=== PATIENT | male | born 1955 | race African-American/Black ===

== ENCOUNTER 2022-04-15 06:05 | Inpatient (IN) ==
[~2022-04-15 06:05] MED LIST: CeFAZolin Syr 2,000MG/20 ML 2,000 MG/20 ML SYRINGE IVPB ONE
[2022-04-15] MEDS ORDERED: DOBUTamine 1,000 MG/250 ML BAG ONE (06:07)
[2022-04-15] MEDS ORDERED: NiCARdipine 2.5 MG/10 ML Syringe IVPB ONE (06:08)
[2022-04-15] MEDS ORDERED: *HR* Midazolam HCl 5 MG/5 ML VIAL IVP ONE (06:12)
[2022-04-15] MEDS ORDERED: *HR* Propofol 200 MG/20 ML VIAL IVP ONE (06:13)
[2022-04-15] MEDS ORDERED: *HR* Rocuronium Bromide 50 MG/5 ML VIAL ONE ×3 (06:13→10:35)
[2022-04-15] MEDS ORDERED: Tranexamic Acid 1,000 MG/10 ML VIAL ONE (06:13)
[2022-04-15] MEDS ORDERED: Famotidine 20 MG/2 ML VIAL ONE (06:13)
[2022-04-15] MEDS ORDERED: *HR* FentaNYL (PF) 1,000 MCG/20 ML VIAL ONE (06:13)
[2022-04-15] MEDS ORDERED: *HR* Magnesium Sulfate 1 GM/2 ML VIAL ONE (06:13)
[2022-04-15] MEDS ORDERED: CeFAZolin Syr 2,000MG/20 ML 2,000 MG/20 ML SYRINGE IVPB ONE (06:18)
[2022-04-15] MEDS ORDERED: Ringers Solution, Lactated 1,000 ML IVC SCH (06:30)
[2022-04-15] MEDS ORDERED: Heparin 1,000 UNITS/500 mL 500 ML ONE (06:34)
[2022-04-15] MEDS ORDERED: Iopamidol - 300 50 ML VIAL ONE (06:35)
[2022-04-15] MEDS: Chlorhexidine Rinse 15 ML MOUTHWASH MM SCH ×7 (06:46→19:30)
[2022-04-15] MEDS ORDERED: Norepinephrine 4 MG in 0.9 % Sodium Chloride 250 ML IVC PRN (07:00)
[2022-04-15] MEDS ORDERED: Heparin 15,000 UNIT in 0.9 % Sodium Chloride 500 ML IR ONE (07:00)
[2022-04-15] MEDS ORDERED: Vancomycin 1,500 MG/265 ML IV.SOLN IVPB ONE (07:00)
[2022-04-15] MEDS ORDERED: del Nido Cardioplegia Solution PF ONE ×2 (07:00)
[2022-04-15] MEDS ORDERED: Buckersberg's Blood Cardioplegia PF ONE (07:00)
[2022-04-15] MEDS ORDERED: Lidocaine 2% Syringe 100 MG/5 ML ONE (07:01)
[2022-04-15 07:23] LABS: ABG Base Excess -3 mEq/L (-2 to 3); ABG Chloride 109 mEq/L (98-107); ABG Glucose 118 mg/dL (60-95); ABG HCO3 24 mEq/L (21-27); ABG Oxygen Saturation 100 % (95-98); ABG PCO2 48 mmHg (35-45); ABG PH 7.31 pH Units (7.32-7.45); ABG PO2 264 mmHg (85-104); ABG TCO2 26 mEq/L (20-26)
[2022-04-15] MEDS ORDERED: *HR* FentaNYL (PF) 250 MCG/5 ML VIAL ONE (09:49)
[2022-04-15 09:51] LABS: ABG Base Excess -3 mEq/L (-2 to 3); ABG Chloride 110 mEq/L (98-107); ABG Glucose 106 mg/dL (60-95); ABG HCO3 22 mEq/L (21-27); ABG Ionized Calcium 1.11 mmol/L (1.15-1.35); ABG Oxygen Saturation 100 % (95-98); ABG PCO2 36 mmHg (35-45); ABG PH 7.39 pH Units (7.32-7.45); ABG PO2 217 mmHg (85-104); ABG TCO2 23 mEq/L (20-26)
[2022-04-15 09:56] LABS: ABG Base Excess -3 mEq/L (-2 to 3); ABG Chloride 106 mEq/L (98-107); ABG Glucose 141 mg/dL (60-95); ABG HCO3 22 mEq/L (21-27); ABG Ionized Calcium 1.04 mmol/L (1.15-1.35); ABG Oxygen Saturation 100 % (95-98); ABG PCO2 39 mmHg (35-45); ABG PH 7.37 pH Units (7.32-7.45); ABG PO2 236 mmHg (85-104); ABG TCO2 24 mEq/L (20-26)
[2022-04-15] MEDS ORDERED: Calcium Gluconate 1,000 MG/10 ML VIAL ONE ×2 (10:01→11:33)
[2022-04-15] MEDS ORDERED: Sodium Bicarbonate 50 MEQ/50 ML VIAL IVC ONE (10:07)
[2022-04-15] MEDS ORDERED: Lidocaine 2% Syringe 100 MG/5 ML IVP ONE (10:07)
[2022-04-15] MEDS ORDERED: *HR* Magnesium Sulfate 2 GM/50 ML PIGGYBACK IVPB ONE (10:07)
[2022-04-15] MEDS ORDERED: *HR* Heparin 10,000 UNIT/10 ML VIAL IR ONE (10:07)
[2022-04-15] MEDS ORDERED: Mannitol 25% vial 12.5 GM/50 ML VIAL IVPB ONE (10:07)
[2022-04-15] MEDS ORDERED: Albumin Human 25% 25 GM/100 ML IV.SOLN IVPB ONE (10:07)
[2022-04-15] MEDS ORDERED: *HR* Phenylephrine 10 MG/ML VIAL IVC ONE (10:07)
[2022-04-15] MEDS ORDERED: Tranexamic Acid 1,000 MG/10 ML VIAL IR ONE (10:07)
[2022-04-15 11:14] LABS: ABG Base Excess -3 mEq/L (-2 to 3); ABG Chloride 111 mEq/L (98-107); ABG Glucose 145 mg/dL (60-95); ABG HCO3 22 mEq/L (21-27); ABG Ionized Calcium 1.03 mmol/L (1.15-1.35); ABG Oxygen Saturation 100 % (95-98); ABG PCO2 36 mmHg (35-45); ABG PH 7.39 pH Units (7.32-7.45); ABG PO2 388 mmHg (85-104); ABG TCO2 23 mEq/L (20-26)
[2022-04-15] MEDS ORDERED: niCARdipine 20 MG/200 ML MLS IVC ONE (11:30)
[2022-04-15] MEDS ORDERED: Protamine Sulfate 250 MG/25 ML VIAL IVP ONE (11:33)
[2022-04-15] MEDS ORDERED: ceFAZolin 1,000 MG in Water for inj. (sterile) 10 ML IVP ONE (11:33)
[2022-04-15] MEDS ORDERED: Protamine Sulfate 50 MG/5 ML VIAL IVP ONE (11:34)
[2022-04-15 12:03] LABS: ABG Base Excess -4 mEq/L (-2 to 3); ABG Chloride 113 mEq/L (98-107); ABG Glucose 129 mg/dL (60-95); ABG HCO3 21 mEq/L (21-27); ABG Ionized Calcium 1.24 mmol/L (1.15-1.35); ABG Oxygen Saturation 100 % (95-98); ABG PCO2 35 mmHg (35-45); ABG PH 7.38 pH Units (7.32-7.45); ABG PO2 262 mmHg (85-104); ABG TCO2 22 mEq/L (20-26)
[2022-04-15 12:21] LABS: ABG Base Excess -2 mEq/L (-2 to 3); ABG Chloride 110 mEq/L (98-107); ABG Glucose 132 mg/dL (60-95); ABG HCO3 22 mEq/L (21-27); ABG Ionized Calcium 1.22 mmol/L (1.15-1.35); ABG PCO2 36 mmHg (35-45); ABG PO2 > 630 mmHg (85-104); ABG TCO2 23 mEq/L (20-26)
[2022-04-15 12:21] LABS: ABG Base Excess -1 mEq/L (-2 to 3); ABG Chloride 106 mEq/L (98-107); ABG Glucose 144 mg/dL (60-95); ABG HCO3 23 mEq/L (21-27); ABG Ionized Calcium 1.01 mmol/L (1.15-1.35); ABG PCO2 34 mmHg (35-45); ABG PH 7.43 pH Units (7.32-7.45); ABG PO2 > 630 mmHg (85-104); ABG TCO2 24 mEq/L (20-26)
[2022-04-15] MEDS: niCARdipine 20 MG/200 ML MLS IVC SCH ×3 (13:00→19:33)
[2022-04-15 13:13] LABS: ABG Base Excess -3 mEq/L (-2 to 3); ABG HCO3 24 mEq/L (21-27); ABG Oxygen Saturation 97 % (95-98); ABG PCO2 47 mmHg (35-45); ABG PO2 96 mmHg (85-104); ABG TCO2 25 mEq/L (20-26); Blood Gas Modality ASSIST CONTROL; Blood Gas VT 600 cc
[2022-04-15] MEDS ORDERED: Acetaminophen 325 MG TABLET PO PRN (13:23)
[2022-04-15] MEDS ORDERED: Naloxone 0.4 MG/ML INJ IVP PRN ×2 (13:23→13:49)
[2022-04-15] MEDS ORDERED: Ipratropium/Albuterol Neb 3 ML IH PRN (13:23)
[2022-04-15] MEDS ORDERED: *HR* Dextrose 50 % in Water (Syg) 50 ML SYRINGE IVP PRN (13:23)
[2022-04-15] MEDS ORDERED: *HR* FentaNYL (PF) 100 MCG/2 ML VIAL IVP PRN (13:23)
[2022-04-15] MEDS ORDERED: Calcium Gluconate 1gm/50mL 1 GM/50 ML BAG IVPB PRN (13:23)
[2022-04-15] MEDS ORDERED: Insulin Regular, Human 100 UNIT/ML IV PRN (13:23)
[2022-04-15] MEDS ORDERED: Potassium Chloride 40 MEQ/200 ML BAG IVPB PRN (13:23)
[2022-04-15] MEDS ORDERED: Albuterol 2.5 MG/3 ML NEBULIZER IH PRN (13:23)
[2022-04-15] MEDS ORDERED: Norepinephrine 4 MG/254 ML IV.SOLN IVC SCH (13:30)
[2022-04-15] MEDS ORDERED: DOBUTamine 1,000 MG/250 ML BAG IVC SCH (13:30)
[2022-04-15] MEDS ORDERED: Artificial Tears SOLN 15 ML BOTTLE BOTH EYES PRN (13:49)
[2022-04-15] MEDS: Ondansetron 4 MG/2 ML VIAL IVP PRN ×2 (14:06→19:58)
[2022-04-15 14:14] LABS: Basophils # 0.1 K/mcL (0.0-0.2); Basophils % 0.4 %; Eosinophils % 0.1 %; Hematocrit 39.9 % (37.5-50.1); Immature Granulocytes % 1.9 % (0-4); Lymphocytes % 4.3 %; Mean Corpuscular HGB Conc 33.1 g/dL (31.6-35.5); Mean Corpuscular Hemoglobin 31.6 pg (28.0-33.3); Mean Corpuscular Volume 95.5 fL (83.0-100.0); Mean Platelet Volume 9.4 fL (9.4-12.4); Monocytes # 1.1 K/mcL (0.0-1.3); Neutrophils # 19.7 K/mcL (1.6-8.9); Platelet Count 128 K/mcL (140-400); Red Blood Count 4.18 M/mcL (4.19-5.50); Red Cell Distribution Width 12.5 % (11.5-14.5); Segmented Neutrophils % 88.3 %
[2022-04-15 14:16] LABS: Hemoglobin 13.2 g/dL (12.9-16.9); White Blood Count 22.3 K/mcL (4.3-11.1)
[2022-04-15] MEDS ORDERED: *HR* Meperidine 25 MG/ML SYRINGE IVP ONE (14:30)
[2022-04-15] MEDS: Albumin Human 5% 12.5 GM/250 ML IV.SOLN IVPB PRN ×4 (14:36→18:46)
[2022-04-15 14:39] LABS: BUN/Creatinine Ratio 9 (6-26); Blood Urea Nitrogen 8 mg/dL (8-23); Carbon Dioxide 25 mEq/L (23-29); Chloride 113 mEq/L (98-107); Glucose 187 mg/dL (70-105); Magnesium 2.6 mg/dL (1.6-2.6); Osmolality,Calculated 293 (280-300); Potassium 4.7 mEq/L (3.5-5.1); Sodium 140 mEq/L (136-145)
[2022-04-15] MEDS: FentaNYL (PF) 1,000 MCG/100 ML IV.SOLN IVC SCH (14:39)
[2022-04-15] MEDS: Pantoprazole 40 MG VIAL IVP SCH (14:40)
[2022-04-15] MEDS: Ringers Solution, Lactated 1,000 ML IVC SCH (14:59)
[2022-04-15] MEDS ORDERED: Iopamidol - 370 500 ML MLS IVP ONE ×2 (15:22→15:27)
[2022-04-15] MEDS: Artificial Tears SOLN 15 ML BOTTLE BOTH EYES SCH ×2 (16:02→19:30)
[2022-04-15 17:31] LABS: ABG Base Excess -6 mEq/L (-2 to 3); ABG HCO3 19 mEq/L (21-27); ABG Oxygen Saturation 99 % (95-98); ABG PCO2 34 mmHg (35-45); ABG PH 7.35 pH Units (7.32-7.45); ABG PO2 166 mmHg (85-104); ABG TCO2 20 mEq/L (20-26); Blood Gas Modality CPAP/PS; Blood Gas Pressure Support 5 cm H2O
[2022-04-15] MEDS: Ketorolac 30 MG/ML VIAL IVP SCH (17:55)
[2022-04-15 18:45] LABS: ABG Base Excess -5 mEq/L (-2 to 3); ABG HCO3 21 mEq/L (21-27); ABG Oxygen Saturation 98 % (95-98); ABG PCO2 39 mmHg (35-45); ABG PH 7.33 pH Units (7.32-7.45); ABG PO2 113 mmHg (85-104); ABG TCO2 22 mEq/L (20-26)
[2022-04-15] MEDS: *HR* OxyCODONE/APAP 5/325 TABLET PO PRN (20:54)
[2022-04-16] MEDS: Ketorolac 30 MG/ML VIAL IVP SCH ×3 (00:11→15:28)
[2022-04-16] MEDS: *HR* OxyCODONE/APAP 5/325 TABLET PO PRN ×5 (01:24→20:11)
[2022-04-16] MEDS: Artificial Tears SOLN 15 ML BOTTLE BOTH EYES SCH ×4 (01:28→10:55)
[2022-04-16 03:31] LABS: Basophils % 0.1 %; Hemoglobin 11.6 g/dL (12.9-16.9); Immature Granulocytes % 0.5 % (0-4); Lymphocytes # 0.5 K/mcL (0.6-4.6); Lymphocytes % 3.6 %; Mean Corpuscular HGB Conc 33.1 g/dL (31.6-35.5); Mean Corpuscular Hemoglobin 31.4 pg (28.0-33.3); Mean Corpuscular Volume 94.6 fL (83.0-100.0); Mean Platelet Volume 9.4 fL (9.4-12.4); Monocytes # 1.4 K/mcL (0.0-1.3); Monocytes % 9.1 %; Neutrophils # 12.9 K/mcL (1.6-8.9); Platelet Count 116 K/mcL (140-400); Red Cell Distribution Width 12.6 % (11.5-14.5); Segmented Neutrophils % 86.7 %; White Blood Count 14.9 K/mcL (4.3-11.1)
[2022-04-16 03:43] LABS: Calcium 8.3 mg/dL (8.6-10.3); Magnesium 2.3 mg/dL (1.6-2.6); Phosphorous 3.3 mg/dL (2.7-4.5); Potassium 4.6 mEq/L (3.5-5.1)
[2022-04-16 03:45] LABS: INR 1.3; Prothrombin Time 14.7 Seconds (9.4-12.1)
[2022-04-16 03:47] LABS: Activated Partial Thrombo Time 25.9 Seconds (26.0-36.0)
[2022-04-16] MEDS: niCARdipine 20 MG/200 ML MLS IVC SCH ×6 (04:03→22:17)
[2022-04-16] MEDS: Ringers Solution, Lactated 1,000 ML IVC SCH ×3 (07:48→17:37)
[2022-04-16] MEDS: Chlorhexidine Rinse 15 ML MOUTHWASH MM SCH ×3 (07:52→22:16)
[2022-04-16] MEDS: Pantoprazole 40 MG VIAL IVP SCH (07:55)
[2022-04-16] MEDS ORDERED: Furosemide 20 MG/2 ML VIAL IVP SCH ×2 (08:00→17:00)
[2022-04-16] MEDS: FentaNYL (PF) 1,000 MCG/100 ML IV.SOLN IVC SCH (08:28)
[2022-04-16] MEDS ORDERED: Aspirin Enteric Coated 81 MG Tablet PO SCH (09:00)
[2022-04-16] MEDS ORDERED: *HR* FentaNYL (PF) 100 MCG/2 ML VIAL IVP PRN (12:45)
[2022-04-16] MEDS ORDERED: Naloxone 0.4 MG/ML INJ IVP PRN (12:45)
[2022-04-16] MEDS ORDERED: Calcium Gluconate 1gm/50mL 1 GM/50 ML BAG IVPB PRN (12:45)
[2022-04-16] MEDS ORDERED: Potassium Chloride 40 MEQ/200 ML BAG IVPB PRN (12:45)
[2022-04-16] MEDS ORDERED: Ipratropium/Albuterol Neb 3 ML IH PRN (12:45)
[2022-04-16] MEDS ORDERED: Albuterol 2.5 MG/3 ML NEBULIZER IH PRN (12:45)
[2022-04-16] MEDS ORDERED: Artificial Tears SOLN 15 ML BOTTLE BOTH EYES PRN (12:45)
[2022-04-16] MEDS ORDERED: Ondansetron 4 MG/2 ML VIAL IVP PRN (12:45)
[2022-04-16] MEDS ORDERED: Albumin Human 5% 12.5 GM/250 ML IV.SOLN IVPB PRN (12:45)
[2022-04-16] MEDS ORDERED: *HR* Dextrose 50 % in Water (Syg) 50 ML SYRINGE IVP PRN (12:45)
[2022-04-16] MEDS ORDERED: amLODIPine 5 MG TABLET PO SCH (14:00)
[2022-04-16] MEDS: amLODIPine 5 MG TABLET PO SCH (16:15)
[2022-04-16] MEDS: Bumetanide 1 MG/4 ML VIAL IVP SCH (17:38)
[2022-04-16] MEDS ORDERED: Ketorolac 30 MG/ML VIAL IVP SCH (18:00)
[2022-04-16] MEDS: Acetaminophen 325 MG TABLET PO PRN (20:12)
[2022-04-17] MEDS: Acetaminophen 325 MG TABLET PO PRN ×2 (02:07→19:51)
[2022-04-17] MEDS: Ringers Solution, Lactated 1,000 ML IVC SCH ×2 (02:08→14:16)
[2022-04-17] MEDS: *HR* OxyCODONE/APAP 5/325 TABLET PO PRN ×5 (02:08→23:44)
[2022-04-17] MEDS: niCARdipine 20 MG/200 ML MLS IVC SCH ×5 (03:46→20:47)
[2022-04-17] MEDS: Bumetanide 1 MG/4 ML VIAL IVP SCH ×2 (06:02→17:31)
[2022-04-17] MEDS ORDERED: Amiodarone Premix 150 MG/100 ML BAG IVPB ONE ×2 (07:48→07:52)
[2022-04-17] MEDS ORDERED: Amiodarone 300 MG in D5% in Water 100 ML IVPB ONE (07:49)
[2022-04-17] MEDS ORDERED: Amiodarone Premix 360 MG/200 ML BAG IVC ONE (07:52)
[2022-04-17] MEDS: Pantoprazole 40 MG VIAL IVP SCH (08:38)
[2022-04-17] MEDS: Aspirin Enteric Coated 81 MG Tablet PO SCH (08:38)
[2022-04-17] MEDS: Chlorhexidine Rinse 15 ML MOUTHWASH MM SCH ×2 (08:38→19:52)
[2022-04-17] MEDS: amLODIPine 5 MG TABLET PO SCH (08:38)
[2022-04-17 08:41] LABS: Hemoglobin 11.3 g/dL (12.9-16.9); Mean Corpuscular HGB Conc 33.2 g/dL (31.6-35.5); Mean Corpuscular Hemoglobin 32.1 pg (28.0-33.3); Mean Corpuscular Volume 96.6 fL (83.0-100.0); Mean Platelet Volume 9.4 fL (9.4-12.4); Platelet Count 100 K/mcL (140-400); Red Blood Count 3.52 M/mcL (4.19-5.50); Red Cell Distribution Width 12.8 % (11.5-14.5); White Blood Count 14.3 K/mcL (4.3-11.1)
[2022-04-17 09:15] LABS: Albumin 4.1 g/dL (3.5-5.7); Albumin/Globulin Ratio 2.1 (1.1-2.2); Bilirubin,Total 0.9 mg/dL (0.3-1.0); Calcium 8.5 mg/dL (8.6-10.3); Potassium 3.8 mEq/L (3.5-5.1); Total Protein 6.1 g/dL (6.4-8.9)
[2022-04-17] MEDS: Amiodarone Premix 360 MG/200 ML BAG IVC SCH (14:15)
[2022-04-18] MEDS: Acetaminophen 325 MG TABLET PO PRN ×4 (02:05→21:21)
[2022-04-18] MEDS: Amiodarone Premix 360 MG/200 ML BAG IVC SCH (02:05)
[2022-04-18] MEDS: Bumetanide 1 MG/4 ML VIAL IVP SCH ×2 (06:13→16:45)
[2022-04-18 06:39] LABS: Hemoglobin 10.2 g/dL (12.9-16.9); Mean Corpuscular Volume 98.1 fL (83.0-100.0); Red Cell Distribution Width 12.8 % (11.5-14.5)
[2022-04-18 06:41] LABS: Immature Platelets 4.2 % (1.1-6.1); Mean Corpuscular HGB Conc 32.9 g/dL (31.6-35.5); Mean Corpuscular Hemoglobin 32.3 pg (28.0-33.3); Mean Platelet Volume 9.8 fL (9.4-12.4); Red Blood Count 3.16 M/mcL (4.19-5.50); White Blood Count 12.2 K/mcL (4.3-11.1)
[2022-04-18 07:10] LABS: Calcium 8.5 mg/dL (8.6-10.3); Potassium 3.8 mEq/L (3.5-5.1)
[2022-04-18] MEDS: niCARdipine 20 MG/200 ML MLS IVC SCH (07:19)
[2022-04-18] MEDS: Chlorhexidine Rinse 15 ML MOUTHWASH MM SCH ×2 (08:05→21:22)
[2022-04-18] MEDS: Aspirin Enteric Coated 81 MG Tablet PO SCH (08:05)
[2022-04-18] MEDS: amLODIPine 5 MG TABLET PO SCH (08:05)
[2022-04-18] MEDS: Pantoprazole 40 MG VIAL IVP SCH (08:06)
[2022-04-18] MEDS ORDERED: *HR* Amiodarone 200 MG TABLET PO ONE (12:00)
[2022-04-18] MEDS: *HR* Amiodarone 200 MG TABLET PO SCH (21:22)
[2022-04-19 02:11] LABS: Hemoglobin 10.6 g/dL (12.9-16.9); Mean Corpuscular HGB Conc 33.1 g/dL (31.6-35.5); Mean Corpuscular Hemoglobin 31.6 pg (28.0-33.3); Mean Corpuscular Volume 95.5 fL (83.0-100.0); Mean Platelet Volume 9.7 fL (9.4-12.4); Platelet Count 132 K/mcL (140-400); Red Blood Count 3.35 M/mcL (4.19-5.50); Red Cell Distribution Width 12.5 % (11.5-14.5); White Blood Count 10.8 K/mcL (4.3-11.1)
[2022-04-19 02:30] LABS: Calcium 8.7 mg/dL (8.6-10.3); Potassium 3.5 mEq/L (3.5-5.1)
[2022-04-19 02:42] LABS: Thyroid Stimulating Hormone 1.98 mcIU/mL (0.340-5.600)
[2022-04-19] MEDS: Acetaminophen 325 MG TABLET PO PRN ×2 (04:56→15:24)
[2022-04-19] MEDS: Bumetanide 1 MG/4 ML VIAL IVP SCH (04:57)
[2022-04-19] MEDS: Pantoprazole 40 MG VIAL IVP SCH (08:16)
[2022-04-19] MEDS: *HR* Amiodarone 200 MG TABLET PO SCH (08:16)
[2022-04-19] MEDS: *HR* OxyCODONE/APAP 5/325 TABLET PO PRN ×2 (08:16→20:52)
[2022-04-19] MEDS: Aspirin Enteric Coated 81 MG Tablet PO SCH (08:16)
[2022-04-19] MEDS: Chlorhexidine Rinse 15 ML MOUTHWASH MM SCH ×2 (08:16→20:47)
[2022-04-19] MEDS: amLODIPine 5 MG TABLET PO SCH (08:16)
[2022-04-19] MEDS ORDERED: *HR* Amiodarone 200 MG TABLET PO ONE (11:56)
[2022-04-19] MEDS ORDERED: Amiodarone Premix 150 MG/100 ML BAG IVPB ONE (18:00)
[2022-04-19] MEDS ORDERED: Amiodarone Premix 360 MG/200 ML BAG IVC ONE (18:20)
[2022-04-20] MEDS ORDERED: Amiodarone Premix 360 MG/200 ML BAG IVC SCH (00:20)
[2022-04-20 02:17] LABS: Hematocrit 31.5 % (37.5-50.1); Hemoglobin 10.4 g/dL (12.9-16.9); Mean Corpuscular Hemoglobin 31.2 pg (28.0-33.3); Mean Corpuscular Volume 94.6 fL (83.0-100.0); Mean Platelet Volume 9.6 fL (9.4-12.4); Platelet Count 165 K/mcL (140-400); Red Blood Count 3.33 M/mcL (4.19-5.50); Red Cell Distribution Width 12.2 % (11.5-14.5); White Blood Count 9.4 K/mcL (4.3-11.1)
[2022-04-20 02:34] LABS: Calcium 8.6 mg/dL (8.6-10.3); Potassium 3.9 mEq/L (3.5-5.1)
[2022-04-20] MEDS: Acetaminophen 325 MG TABLET PO PRN ×4 (06:18→21:52)
[2022-04-20] MEDS: Aspirin Enteric Coated 81 MG Tablet PO SCH (09:33)
[2022-04-20] MEDS: amLODIPine 5 MG TABLET PO SCH (09:34)
[2022-04-20] MEDS: Pantoprazole 40 MG VIAL IVP SCH (09:34)
[2022-04-20] MEDS: Chlorhexidine Rinse 15 ML MOUTHWASH MM SCH ×2 (09:40→19:42)
[2022-04-20] MEDS: *HR* Amiodarone 200 MG TABLET PO SCH ×2 (12:29→19:42)
[2022-04-21] MEDS: Acetaminophen 325 MG TABLET PO PRN ×2 (02:38→07:31)
[2022-04-21] MEDS: *HR* Amiodarone 200 MG TABLET PO SCH ×2 (07:31→21:07)
[2022-04-21] MEDS: Aspirin Enteric Coated 81 MG Tablet PO SCH (07:32)
[2022-04-21] MEDS: Pantoprazole 40 MG VIAL IVP SCH (07:32)
[2022-04-21] MEDS: amLODIPine 5 MG TABLET PO SCH (07:32)
[2022-04-21] MEDS: Chlorhexidine Rinse 15 ML MOUTHWASH MM SCH ×2 (07:33→19:48)
[2022-04-21] MEDS ORDERED: Melatonin 3 MG TABLET PO SCH (21:00)
[2022-04-22 02:51] LABS: Hematocrit 29.9 % (37.5-50.1); Hemoglobin 9.9 g/dL (12.9-16.9); Mean Corpuscular HGB Conc 33.1 g/dL (31.6-35.5); Mean Corpuscular Hemoglobin 31.7 pg (28.0-33.3); Mean Corpuscular Volume 95.8 fL (83.0-100.0); Platelet Count 204 K/mcL (140-400); Red Blood Count 3.12 M/mcL (4.19-5.50); Red Cell Distribution Width 12.4 % (11.5-14.5); White Blood Count 9.6 K/mcL (4.3-11.1)
[2022-04-22 03:10] LABS: Calcium 8.4 mg/dL (8.6-10.3); Potassium 3.8 mEq/L (3.5-5.1)
[2022-04-22 08:13] VITALS: TEMP 98.2
[2022-04-22] MEDS: Aspirin Enteric Coated 81 MG Tablet PO SCH (08:13)
[2022-04-22] MEDS: amLODIPine 5 MG TABLET PO SCH (08:13)
[2022-04-22] MEDS: Chlorhexidine Rinse 15 ML MOUTHWASH MM SCH ×2 (08:14→10:36)
[2022-04-22] MEDS: *HR* Amiodarone 200 MG TABLET PO SCH (08:35)
[2022-04-22 13:51] VITALS: BP 151/57; O2SAT 99
[2022-04-22 13:52] VITALS: PULSE 67
== END 2022-04-22 16:20 | disposition home health service (06) | DRG 219 ==
LOC: SAMDAY 06:05 → SUATTDRO 13:06 → ICNU 13:06 → 2NNU 04-17 23:36
PROVIDERS: ADMIT Thoracic Surgery (Cardiothoracic Vascular Surgery); ATTEND Internal Medicine